=== PATIENT | male | born 1990 | race Caucasian/White ===

== ENCOUNTER 2020-11-08 03:34 | Emergency (ER) | payer OTHER ==
--- NOTE | 2020-11-08 04:28 | XR ---
EXAMINATION TYPE: XR KUB DATE OF EXAM: 11/08/2020 COMPARISON: NONE HISTORY: Abdominal pain TECHNIQUE: 2 views FINDINGS: Bowel gas pattern is normal. There is no sign of intestinal obstruction or pneumoperitoneum . Fecal pattern is normal. There is no evidence of a mass. There are no pathologic calcifications ove r the kidneys. IMPRESSION: Nonacute abdomen.
[2020-11-08] MEDS ORDERED: MAG HYDROX/AL HYDROX/SIMETH 30 ML, HYOSCYAMINE ELIXIR 10 ML, LIDOCAINE VISCOUS 2% 10 ML PO STA ×3 (04:37)
[2020-11-08 05:15] LABS: Appearance,Urine Clear (Clear); Bilirubin,Urine Negative (Negative); Blood,Urine Negative (Negative); Color,Urine Yellow; Glucose,Urine (UA) Negative (Negative); Ketones,Urine Negative (Negative); Leukocyte Esterase,Urine Negative (Negative); Nitrite,Urine Negative (Negative); PH, Urine 5.5 (5.0-8.0); Protein,Urine Trace (Negative); Specific Gravity,Urine 1.026 (1.001-1.035); Urobilinogen,Urine <2.0 mg/dL (<2.0)
[2020-11-08 05:28] LABS: ALT 47 U/L (4-49); AST 45 U/L (17-59); African American GFR (CKD) >90 (>60 ml/min/1.73 sqM); Alkaline Phosphatase 73 U/L (38-126); Amylase 39 U/L (30-110); Blood Urea Nitrogen 13 mg/dL (9-20); Calcium 10.2 mg/dL (8.4-10.2); Carbon Dioxide 26 mmol/L (22-30); Chloride 101 mmol/L (98-107); Glucose 111 mg/dL (74-99); Lipase 141 U/L (23-300); Non-African American GFR(CKD) 81 (>60 ml/min/1.73 sqM); Total Bilirubin 0.5 mg/dL (0.2-1.3); Total Protein 7.7 g/dL (6.3-8.2)
[2020-11-08 05:30] LABS: Anion Gap 9 mmol/L; Potassium 4.8 mmol/L (3.5-5.1); Sodium 136 mmol/L (137-145)
[2020-11-08 06:00] LABS: Basophils # (A) 0.1 k/uL (0-0.2); Basophils % (A) 1 %; Eosinophils # (A) 0.1 k/uL (0-0.7); Eosinophils % (A) 1 %; HCT 48.4 % (39.0-53.0); HGB 16.5 gm/dL (13.0-17.5); Lymphocytes # (A) 1.5 k/uL (1.0-4.8); Lymphocytes % (A) 14 %; MCH 31.3 pg (25.0-35.0); MCHC 34.1 g/dL (31.0-37.0); MCV 91.8 fL (80.0-100.0); Mean Platelet Volume 7.7; Monocytes # (A) 0.5 k/uL (0-1.0); Monocytes % (A) 5 %; Neutrophils % (A) 80 %; Platelet Count 280 k/uL (150-450); RBC 5.27 m/uL (4.30-5.90); RDW 11.6 % (11.5-15.5); WBC 11.3 k/uL (3.8-10.6)
--- NOTE | 2020-11-08 06:17 | ED ---
Abdominal Pain HPI - General Chief Complaint: Abdominal Pain Stated Complaint: Abdominal Pain Time Seen by Provider: 11/08/20 03:50 Source: patient Mode of arrival: ambulatory Limitations: no limitations - History of Present Illness Initial Comments: This patient is a 30-year-old man who presents with upper abdominal pain that woke him from sleep 2 hours ago. Patient indicates the epigastric area. States pain was severe, aching and burning. there seemed to spontaneously resolving he was coming here is feeling much better. Some associated nausea. He did have an episode like this a few months ago and also resolved spontaneously. MD Complaint: abdominal pain Onset/Timin -: hour(s) Location: epigastric Radiation: none Migration to: no migration Severity: moderate Quality: aching Consistency: now resolved Improves With: nothing Worsens With: nothing Associated Symptoms: nausea - Related Data Previous Rx's Medication Instructions Recorded Famotidine [Pepcid] 20 mg PO BID #14 tablet 11/08/20 Allergies Allergy/AdvReac Type Severity Reaction Status Date / Time No Known Allergies Allergy Verified 11/08/20 03:49 Review of Systems ROS Statement: Those systems with pertinent positive or pertinent negative responses have been documented in the HPI. ROS Other: All systems not noted in ROS Statement are negative. Constitutional: Denies: fever, chills Respiratory: Denies: cough, dyspnea Cardiovascular: Denies: chest pain, palpitations Gastrointestinal: Reports: abdominal pain, nausea. Denies: vomiting, diarrhea, constipation, melena, hematochezia Genitourinary: Denies: urgency, dysuria, hematuria, testicular pain Musculoskeletal: Denies: back pain Skin: Denies: rash Neurological: Denies: headache, weakness, numbness Past Medical History Past Medical History: No Reported History History of Any Multi-Drug Resistant Organisms: None Reported Past Surgical History: No Surgical Hx Reported Past Psychological History: No Psychological Hx Reported Smoking Status: Never smoker Past Alcohol Use History: Daily Past Drug Use History: None Reported General Exam Limitations: no limitations General appearance: alert, in no apparent distress Head exam: Present: atraumatic, normocephalic Eye exam: Present: normal appearance. Absent: scleral icterus, conjunctival injection ENT exam: Present: normal oropharynx Neck exam: Present: normal inspection Respiratory exam: Present: normal lung sounds bilaterally. Absent: respiratory distress, wheezes, rales, rhonchi, stridor Cardiovascular Exam: Present: regular rate, normal rhythm, normal heart sounds. Absent: systolic murmur, diastolic murmur, rubs, gallop GI/Abdominal exam: Present: soft. Absent: distended, tenderness, guarding, rebound, rigid, mass, pulsatile mass, hernia Extremities exam: Present: normal inspection, normal capillary refill. Absent: pedal edema, calf tenderness Back exam: Present: normal inspection. Absent: CVA tenderness (R), CVA tenderness (L) Neurological exam: Present: alert Skin exam: Present: warm, dry, intact, normal color. Absent: rash Course Vital Signs 11/08/20 11/08/20 03:45 06:48 Temperature 97 F L 97.9 F Pulse Rate 70 77 Respiratory 18 16 Rate Blood Pressure 174/102 140/85 O2 Sat by Pulse 98 98 Oximetry Medical Decision Making - Medical Decision Making 30-year-old man with abdominal pain that has resolved. Discussed possibility of gallbladder disease amongst other etiologies. Patient will follow-up if there is recurrence. Return parameters discussed. - Lab Data Result diagrams: 11/08/20 04:59 11/08/20 04:59 Lab Results 11/08/20 11/08/20 11/08/20 Range/Units 04:59 04:59 04:59 WBC 11.3 H (3.8-10.6) k/uL RBC 5.27 (4.30-5.90) m/uL Hgb 16.5 (13.0-17.5) gm/dL Hct 48.4 (39.0-53.0) % MCV 91.8 (80.0-100.0) fL MCH 31.3 (25.0-35.0) pg MCHC 34.1 (31.0-37.0) g/dL RDW 11.6 (11.5-15.5) % Plt Count 280 (150-450) k/uL MPV 7.7 Neutrophils % 80 % Lymphocytes % 14 % Monocytes % 5 % Eosinophils % 1 % Basophils % 1 % Neutrophils # 9.0 H (1.3-7.7) k/uL Lymphocytes # 1.5 (1.0-4.8) k/uL Monocytes # 0.5 (0-1.0) k/uL Eosinophils # 0.1 (0-0.7) k/uL Basophils # 0.1 (0-0.2) k/uL Manual Slide Review Performed Sodium 136 L (137-145) mmol/L Potassium 4.8 (3.5-5.1) mmol/L Chloride 101 (98-107) mmol/L Carbon Dioxide 26 (22-30) mmol/L Anion Gap 9 mmol/L BUN 13 (9-20) mg/dL Creatinine 1.18 (0.66-1.25) mg/dL Est GFR (CKD-EPI)AfAm >90 (>60 ml/min/1.73 sqM) Est GFR (CKD-EPI)NonAf 81 (>60 ml/min/1.73 sqM) Glucose 111 H (74-99) mg/dL Calcium 10.2 (8.4-10.2) mg/dL Total Bilirubin 0.5 (0.2-1.3) mg/dL AST 45 (17-59) U/L ALT 47 (4-49) U/L Alkaline Phosphatase 73 (38-126) U/L Total Protein 7.7 (6.3-8.2) g/dL Albumin 5.0 (3.5-5.0) g/dL Amylase 39 (30-110) U/L Lipase 141 (23-300) U/L Urine Color Yellow Urine Appearance Clear (Clear) Urine pH 5.5 (5.0-8.0) Ur Specific [place] 1.026 (1.001-1.035) Urine Protein Trace H (Negative) Urine Glucose (UA) Negative (Negative) Urine Ketones Negative (Negative) Urine Blood Negative (Negative) Urine Nitrite Negative (Negative) Urine Bilirubin Negative (Negative) Urine Urobilinogen <2.0 (<2.0) mg/dL Ur Leukocyte Esterase Negative (Negative) Disposition Clinical Impression: Abdominal pain Disposition: HOME SELF-CARE Condition: Good Instructions (If sedation given, give patient instructions): Abdominal Pain (ED) Prescriptions: Famotidine [Pepcid] 20 mg PO BID #14 tablet Is patient prescribed a controlled substance at d/c from ED?: No Referrals: None,Stated [Primary Care Provider] - 1-2 days
[2020-11-08 06:49] VITALS: BP 140/85; PULSE 77; RESP 16; TEMP 97.9
== END 2020-11-08 07:06 | disposition home or self-care (01) ==
LOC: EC 03:34
DX: R10.13 Epigastric pain (principal)
CPT/HCPCS: 36415; 74018; 80053; 81003; 82150; 83690; 85025; 99284

== ENCOUNTER 2021-01-27 22:03 | Inpatient (IN) | payer OTHER ==
[2021-01-27] MEDS ORDERED: HYDROmorphone 0.5 MG/0.5 ML SYRINGE IVP STA ×2 (22:25→23:31)
[2021-01-27] MEDS ORDERED: SODIUM CHLORIDE 0.9% 1,000 ML IV STA (22:25)
[2021-01-27] MEDS ORDERED: FAMOTIDINE 20 MG/2 ML VIAL IV STA (22:26)
--- NOTE | 2021-01-27 22:32 | ED ---
General Adult HPI - General Chief complaint: Abdominal Pain Stated complaint: Upper stomach pain Time Seen by Provider: 01/27/21 22:18 Source: patient, RN notes reviewed Mode of arrival: ambulatory Limitations: no limitations - History of Present Illness Initial comments: 30-year-old male without significant past medical history presents to the emergency room for a chief complaint of abdominal pain. Patient states for the past week he has had upper abdominal pain but it has worsened significantly over the past few hours. States that he has had similar pain before and had an ultrasound of his gallbladder done which was negative a couple months ago. Patient states that he is supposed to get an endoscopy eventually. He has not had a CAT scan.Patient has no other complaints at this time including shortness of breath, chest pain, nausea or vomiting, headache, or visual changes. - Related Data Home Medications Medication Instructions Recorded Confirmed Omeprazole 40 mg PO BID 01/27/21 01/27/21 Allergies Allergy/AdvReac Type Severity Reaction Status Date / Time No Known Allergies Allergy Verified 01/27/21 23:32 Review of Systems ROS Statement: Those systems with pertinent positive or pertinent negative responses have been documented in the HPI. ROS Other: All systems not noted in ROS Statement are negative. Past Medical History Past Medical History: No Reported History History of Any Multi-Drug Resistant Organisms: None Reported Past Surgical History: No Surgical Hx Reported Past Psychological History: No Psychological Hx Reported Smoking Status: Never smoker Past Alcohol Use History: Daily Past Drug Use History: Marijuana General Exam Limitations: no limitations General appearance: alert, in distress (Mildly distressed secondary to pain) Head exam: Present: atraumatic Eye exam: Present: normal appearance, PERRL, EOMI. Absent: scleral icterus, conjunctival injection ENT exam: Present: normal exam, mucous membranes moist Neck exam: Present: normal inspection, full ROM. Absent: tenderness Respiratory exam: Present: normal lung sounds bilaterally. Absent: respiratory distress, wheezes Cardiovascular Exam: Present: regular rate, normal rhythm, normal heart sounds GI/Abdominal exam: Present: soft, normal bowel sounds. Absent: distended, tenderness Course Vital Signs 01/27/21 01/28/21 22:14 00:55 Temperature 98.8 F Pulse Rate 62 66 Respiratory 20 18 Rate Blood Pressure 137/113 149/88 O2 Sat by Pulse 99 98 Oximetry Medical Decision Making - Medical Decision Making Vitals are stable. Patient does have significant epigastric and right upper quadrant abdominal pain. CBC does show a white count of 12. CMP does show mild transaminitis. Urinalysis negative for infection. COVID-[address] abdomen and pelvis with contrast shows multiple gallstones with some mild pericholecystic fluid and gallbladder wall thickening at the gallbladder fundus suspicious for cholecystitis. Discussed with Dr. Jara who does accept the admission, requests Zosyn be given. - Lab Data Result diagrams: 01/27/21 22:44 01/27/21 22:44 Lab Results 01/27/21 01/27/21 01/27/21 Range/Units 22:44 22:44 22:44 WBC 12.0 H (3.8-10.6) k/uL RBC 5.16 (4.30-5.90) m/uL Hgb 16.5 (13.0-17.5) gm/dL Hct 48.2 (39.0-53.0) % MCV 93.5 (80.0-100.0) fL MCH 31.9 (25.0-35.0) pg MCHC 34.1 (31.0-37.0) g/dL RDW 12.5 (11.5-15.5) % Plt Count 336 (150-450) k/uL MPV 6.9 Neutrophils % 70 % Lymphocytes % 22 % Monocytes % 5 % Eosinophils % 1 % Basophils % 0 % Neutrophils # 8.4 H (1.3-7.7) k/uL Lymphocytes # 2.7 (1.0-4.8) k/uL Monocytes # 0.6 (0-1.0) k/uL Eosinophils # 0.2 (0-0.7) k/uL Basophils # 0.1 (0-0.2) k/uL Sodium 139 (137-145) mmol/L Potassium 4.4 (3.5-5.1) mmol/L Chloride 100 (98-107) mmol/L Carbon Dioxide 28 (22-30) mmol/L Anion Gap 11 mmol/L BUN 17 (9-20) mg/dL Creatinine 1.15 (0.66-1.25) mg/dL Est GFR (CKD-EPI)AfAm >90 (>60 ml/min/1.73 sqM) Est GFR (CKD-EPI)NonAf 84 (>60 ml/min/1.73 sqM) Glucose 116 H (74-99) mg/dL Plasma Lactic Acid Manny (0.7-2.0) mmol/L Calcium 10.2 (8.4-10.2) mg/dL Total Bilirubin 0.5 (0.2-1.3) mg/dL AST 62 H (17-59) U/L ALT 86 H (4-49) U/L Alkaline Phosphatase 72 (38-126) U/L Total Protein 8.0 (6.3-8.2) g/dL Albumin 4.9 (3.5-5.0) g/dL Amylase 56 (30-110) U/L Lipase 187 (23-300) U/L Urine Color Yellow Urine Appearance Clear (Clear) Urine pH 6.0 (5.0-8.0) Ur Specific [place] 1.023 (1.001-1.035) Urine Protein Trace H (Negative) Urine Glucose (UA) Negative (Negative) Urine Ketones Negative (Negative) Urine Blood Negative (Negative) Urine Nitrite Negative (Negative) Urine Bilirubin Negative (Negative) Urine Urobilinogen <2.0 (<2.0) mg/dL Ur Leukocyte Esterase Negative (Negative) Coronavirus (PCR) (Not Detectd) 01/27/21 01/28/21 Range/Units 22:44 01:07 WBC (3.8-10.6) k/uL RBC (4.30-5.90) m/uL Hgb (13.0-17.5) gm/dL Hct (39.0-53.0) % MCV (80.0-100.0) fL MCH (25.0-35.0) pg MCHC (31.0-37.0) g/dL RDW (11.5-15.5) % Plt Count (150-450) k/uL MPV Neutrophils % % Lymphocytes % % Monocytes % % Eosinophils % % Basophils % % Neutrophils # (1.3-7.7) k/uL Lymphocytes # (1.0-4.8) k/uL Monocytes # (0-1.0) k/uL Eosinophils # (0-0.7) k/uL Basophils # (0-0.2) k/uL Sodium (137-145) mmol/L Potassium (3.5-5.1) mmol/L Chloride (98-107) mmol/L Carbon Dioxide (22-30) mmol/L Anion Gap mmol/L BUN (9-20) mg/dL Creatinine (0.66-1.25) mg/dL Est GFR (CKD-EPI)AfAm (>60 ml/min/1.73 sqM) Est GFR (CKD-EPI)NonAf (>60 ml/min/1.73 sqM) Glucose (74-99) mg/dL Plasma Lactic Acid Manny 0.7 (0.7-2.0) mmol/L Calcium (8.4-10.2) mg/dL Total Bilirubin (0.2-1.3) mg/dL AST (17-59) U/L ALT (4-49) U/L Alkaline Phosphatase (38-126) U/L Total Protein (6.3-8.2) g/dL Albumin (3.5-5.0) g/dL Amylase (30-110) U/L Lipase (23-300) U/L Urine Color Urine Appearance (Clear) Urine pH (5.0-8.0) Ur Specific [place] (1.001-1.035) Urine Protein (Negative) Urine Glucose (UA) (Negative) Urine Ketones (Negative) Urine Blood (Negative) Urine Nitrite (Negative) Urine Bilirubin (Negative) Urine Urobilinogen (<2.0) mg/dL Ur Leukocyte Esterase (Negative) Coronavirus (PCR) Not Detected (Not Detectd) Disposition Clinical Impression: Cholecystitis, Transaminitis, Leukocytosis, Abdominal pain Disposition: ADMITTED IP TO THIS HOSP Condition: Stable Is patient prescribed a controlled substance at d/c from ED?: No Referrals: Joseph Morales MD [Primary Care Provider] - 1-2 days Time of Disposition: 01:50
[2021-01-27 22:55] LABS: Basophils # (A) 0.1 k/uL (0-0.2); Basophils % (A) 0 %; Eosinophils # (A) 0.2 k/uL (0-0.7); Eosinophils % (A) 1 %; HCT 48.2 % (39.0-53.0); HGB 16.5 gm/dL (13.0-17.5); Lymphocytes # (A) 2.7 k/uL (1.0-4.8); Lymphocytes % (A) 22 %; MCH 31.9 pg (25.0-35.0); MCHC 34.1 g/dL (31.0-37.0); MCV 93.5 fL (80.0-100.0); Mean Platelet Volume 6.9; Monocytes # (A) 0.6 k/uL (0-1.0); Monocytes % (A) 5 %; Neutrophils # (A) 8.4 k/uL (1.3-7.7); Neutrophils % (A) 70 %; Platelet Count 336 k/uL (150-450); RBC 5.16 m/uL (4.30-5.90); RDW 12.5 % (11.5-15.5)
[2021-01-27 22:58] LABS: Appearance,Urine Clear (Clear); Bilirubin,Urine Negative (Negative); Blood,Urine Negative (Negative); Color,Urine Yellow; Glucose,Urine (UA) Negative (Negative); Ketones,Urine Negative (Negative); Leukocyte Esterase,Urine Negative (Negative); Nitrite,Urine Negative (Negative); Protein,Urine Trace (Negative); Specific Gravity,Urine 1.023 (1.001-1.035); Urobilinogen,Urine <2.0 mg/dL (<2.0)
[2021-01-27 23:07] LABS: ALT 86 U/L (4-49); AST 62 U/L (17-59); African American GFR (CKD) >90 (>60 ml/min/1.73 sqM); Albumin 4.9 g/dL (3.5-5.0); Alkaline Phosphatase 72 U/L (38-126); Amylase 56 U/L (30-110); Anion Gap 11 mmol/L; Blood Urea Nitrogen 17 mg/dL (9-20); Calcium 10.2 mg/dL (8.4-10.2); Carbon Dioxide 28 mmol/L (22-30); Chloride 100 mmol/L (98-107); Glucose 116 mg/dL (74-99); Lipase 187 U/L (23-300); Non-African American GFR(CKD) 84 (>60 ml/min/1.73 sqM); Potassium 4.4 mmol/L (3.5-5.1); Sodium 139 mmol/L (137-145); Total Bilirubin 0.5 mg/dL (0.2-1.3)
--- NOTE | 2021-01-27 23:40 | CT ---
EXAMINATION TYPE: CT abdomen pelvis w con DATE OF EXAM: 01/27/2021 COMPARISON: None HISTORY: upper abdominal pain and nausea CT DLP: 1328.3 mGycm Automated exposure control for dose reduction was used. CONTRAST: Performed with IV Contrast, patient injected with 100ml mL of Isovue 300. Images obtained from the diaphragm to the floor the pelvis with IV contrast. Lung bases are clear. There is no pleural effusion. Heart size is normal. There is no pericardial eff usion. There is 1 cm cyst in the left lobe of the liver. There are multiple cholesterol gallstones. T here is some minimal gallbladder wall thickening or pericholecystic fluid. Gallbladder measures 3.5 c m in diameter. Spleen is intact. Stomach is intact. There is no evidence of pancreatic mass. The bile ducts are not dilated. There is no adrenal mass. Kidneys show satisfactory contrast opacification. There is no hydronephrosi s. Delayed images show normal renal excretion. Bladder distends smoothly. There is no inguinal hernia . There is no free fluid in the pelvis. Appendix appears normal. There is no mesenteric edema. There is no ascites or free air. There is no evidence of a bowel obstruction. The lumbar vertebra show normal alignment. Posterior elements are intact. There is no compression fra cture. Bony pelvis is intact. The hip joints are intact. IMPRESSION: Multiple gallstones with some mild pericholecystic fluid or gallbladder wall thickening at the gallbl adder fundus suspicious for cholecystitis. No dilated ducts. Normal appendix.
[2021-01-28] MEDS ORDERED: PIPERACILLIN-TAZOBACTAM 3.375 GM in SODIUM CHLORIDE 0.9% 100 ML IVPB STA (00:44)
[2021-01-28] MEDS ORDERED: HYDROmorphone 0.5 MG/0.5 ML SYRINGE IVP STA (00:44)
[2021-01-28] MEDS ORDERED: NALOXONE 0.4 MG/ML 1 ML VIAL IV PRN (01:50)
[2021-01-28] MEDS ORDERED: ONDANSETRON 4 MG/2 ML VIAL IVP PRN (01:50)
[2021-01-28] MEDS: SODIUM CHLORIDE 0.9% 1,000 ML IV SCH ×3 (03:31→16:06)
[2021-01-28] MEDS: HYDROmorphone 1 MG/ML 1 ML SYRINGE IVP PRN ×4 (03:55→20:00)
[2021-01-28] MEDS ORDERED: SODIUM CHLORIDE 0.9% 2,000 ML IV ONE (06:04)
[2021-01-28] MEDS: KETOROLAC 30 MG/ML 1 ML VIAL IVP SCH ×3 (06:18→16:16)
[2021-01-28] MEDS: ENOXAPARIN 30 MG/0.3 ML SYRINGE SQ SCH (06:26)
[2021-01-28 07:16] LABS: Basophils % (A) 0 %; Eosinophils % (A) 0 %; HCT 46.6 % (39.0-53.0); HGB 16.4 gm/dL (13.0-17.5); Lymphocytes # (A) 1.8 k/uL (1.0-4.8); Lymphocytes % (A) 12 %; MCH 32.6 pg (25.0-35.0); MCHC 35.1 g/dL (31.0-37.0); Mean Platelet Volume 7.1; Monocytes # (A) 0.9 k/uL (0-1.0); Monocytes % (A) 6 %; Neutrophils # (A) 12.4 k/uL (1.3-7.7); Neutrophils % (A) 81 %; Platelet Count 329 k/uL (150-450); RBC 5.01 m/uL (4.30-5.90); RDW 12.6 % (11.5-15.5); WBC 15.2 k/uL (3.8-10.6)
[2021-01-28 07:34] LABS: ALT 77 U/L (4-49); AST 55 U/L (17-59); African American GFR (CKD) >90 (>60 ml/min/1.73 sqM); Albumin 4.5 g/dL (3.5-5.0); Albumin/Globulin Ratio 1.6; Alkaline Phosphatase 74 U/L (38-126); Anion Gap 8 mmol/L; Blood Urea Nitrogen 13 mg/dL (9-20); Calcium 9.7 mg/dL (8.4-10.2); Carbon Dioxide 28 mmol/L (22-30); Chloride 102 mmol/L (98-107); Globulin 2.8 g/dL; Glucose 118 mg/dL (74-99); Non-African American GFR(CKD) 87 (>60 ml/min/1.73 sqM); Potassium 4.7 mmol/L (3.5-5.1); Sodium 138 mmol/L (137-145); Total Bilirubin 0.8 mg/dL (0.2-1.3); Total Protein 7.3 g/dL (6.3-8.2)
[2021-01-28] MEDS: PANTOPRAZOLE 40 MG/10 ML VIAL IVP SCH (08:36)
[2021-01-28] MEDS: PIPERACILLIN-TAZOBACTAM 3.375 GM in SODIUM CHLORIDE 0.9% 100 ML IVPB SCH ×2 (08:44→16:06)
--- NOTE | 2021-01-28 14:45 | P.GSHP ---
History of Present Illness H&P Date: 01/28/21 CHIEF COMPLAINT: Abdominal pain HISTORY OF PRESENT ILLNESS: This is a 30-year-old male who presented to the hospital with complaints of right upper quadrant abdominal pain. He has been having pain intermittently since April. However, he reports that he is had more pain over the last week and severe pain that started last night. Pain usually occurs after eating and mostly in the evenings. Patient reports that around 7:00 last night he started to have right upper quadrant pain that became very severe and did not improve with antacids. He therefore came into the hospital for further evaluation. Patient had computed tomography scan abdomen and pelvis showing multiple gallstones with some mild pericholecystic fluid or gallbladder wall thickening at the gallbladder fundus suspicious for cholecystitis. No dilated ducts. Normal appendix. Patient does admit to feeling hot and cold. He has had a few episodes of vomiting and nausea. Denies fever. He does have leukocytosis and mildly elevated LFTs. PAST MEDICAL HISTORY: None PAST SURGICAL HISTORY: None MEDICATIONS: See list. ALLERGIES: See list. SOCIAL HISTORY: No illicit drug use. REVIEW OF SYSTEMS: CONSTITUTIONAL: Denies fever or chills. HEENT: Denies blurred vision, vision changes, or eye pain. Denies hemoptysis ENDOCRINE: Denies heat or cold intolerance. CARDIOVASCULAR: Denies chest pain or pressure. RESPIRATORY: No shortness of breath. GASTROINTESTINAL: Please refer to HPI NEURO: Denies history of seizures. PSYCH: No depression or suicidal ideation HEMATOLOGIC: Denies bleeding disorders. LYMPHATIC: The patient denies any lumps and bumps around the neck. GENITOURINARY: Denies any blood in urine or increased urinary frequency. MUSCULOSKELETAL: Denies myalgias. Denies joint swelling. Denies decreased range of motion beyond patients baseline. SKIN: Denies pruitis. Denies rash. PHYSICAL EXAM: VITAL SIGNS: Reviewed GENERAL: Well-developed in no acute distress. HEENT: No sclera icterus. Extraocular movements grossly intact. Moist buccal mucosa. Head is atraumatic, normocephalic. Hears conversational speech. No nasal drainage. NECK: Supple without lymphadenopathy. CHEST: Non-labored respirations and equal bilateral excursions. CARDIOVASCULAR: Palpable 2+ radial pulses. ABDOMEN: Soft. Nondistended. Right upper quadrant tenderness with palpation MUSCULOSKELETAL: No clubbing or cyanosis. NEUROLOGIC: No focal or lateralizing signs. Cranial nerves II through XII grossly intact. PSYCH: Appropriate affect. Alert and oriented to person, place and time. SKIN: Well perfused. Good skin turgor. LABORATORY DATA: WBC 12-15.2 Hgb 16.4 platelets 329 Sodium 138 potassium 4.7 BUN 13 creatinine 1.12 Lactic acid 0.7 AST 62 down to 55 ALT 86 down to 77 total bilirubin 0.8 alk phos 74 Lipase 187 Covid not detected IMAGING: computed tomography scan abdomen and pelvis showing multiple gallstones with some mild pericholecystic fluid or gallbladder wall thickening at the gallbladd er fundus suspicious for cholecystitis. No dilated ducts. Normal appendix. ASSESSMENT: 1. Acute cholecystitis with cholelithiasis 2. Mildly elevated LFTs 3. Leukocytosis PLAN: -Patient scheduled for robotic cholecystectomy tomorrow, 01/29/[address] Vega -Keep patient nothing by mouth after midnight -Continue IV antibiotics -Continue IV fluids -Continue pain medication as needed -GI prophylaxis Protonix and DVT prophylaxis Lovenox Physician Music Composer note has been reviewed by physician. Signing provider agrees with the documented findings, assessment, and plan of care. Past Medical History Past Medical History: No Reported History History of Any Multi-Drug Resistant Organisms: None Reported Past Surgical History: No Surgical Hx Reported Past Anesthesia/Blood Transfusion Reactions: No Reported Reaction Past Psychological History: No Psychological Hx Reported Smoking Status: Never smoker Past Alcohol Use History: Daily Past Drug Use History: Marijuana Medications and Allergies Home Medications Medication Instructions Recorded Confirmed Type Omeprazole 40 mg PO BID 01/27/21 01/27/21 History Allergies Allergy/AdvReac Type Severity Reaction Status Date / Time No Known Allergies Allergy Verified 01/27/21 23:32 Surgical - Exam Vital Signs Temp Pulse Resp BP Pulse Ox 98.8 F 62 20 137/113 99 01/27/21 22:14 01/27/21 22:14 01/27/21 22:14 01/27/21 22:14 01/27/21 22:14 Results - Labs 01/28/21 06:38 01/28/21 06:38 Abnormal Lab Results - Last 24 Hours (Table) 01/27/21 01/27/21 01/27/21 Range/Units 22:44 22:44 22:44 WBC 12.0 H (3.8-10.6) k/uL Neutrophils # 8.4 H (1.3-7.7) k/uL Glucose 116 H (74-99) mg/dL AST 62 H (17-59) U/L ALT 86 H (4-49) U/L Urine Protein Trace H (Negative) 01/28/21 01/28/21 Range/Units 06:38 06:38 WBC 15.2 H (3.8-10.6) k/uL Neutrophils # 12.4 H (1.3-7.7) k/uL Glucose 118 H (74-99) mg/dL AST (17-59) U/L ALT 77 H (4-49) U/L Urine Protein (Negative) Diabetes panel 01/27/21 01/28/21 Range/Units 22:44 06:38 Sodium 139 138 (137-145) mmol/L Potassium 4.4 4.7 (3.5-5.1) mmol/L Chloride 100 102 (98-107) mmol/L Carbon Dioxide 28 28 (22-30) mmol/L BUN 17 13 (9-20) mg/dL Creatinine 1.15 1.12 (0.66-1.25) mg/dL Glucose 116 H 118 H (74-99) mg/dL Calcium 10.2 9.7 (8.4-10.2) mg/dL AST 62 H 55 (17-59) U/L ALT 86 H 77 H (4-49) U/L Alkaline Phosphatase 72 74 (38-126) U/L Total Protein 8.0 7.3 (6.3-8.2) g/dL Albumin 4.9 4.5 (3.5-5.0) g/dL Calcium panel 01/27/21 01/28/21 Range/Units 22:44 06:38 Calcium 10.2 9.7 (8.4-10.2) mg/dL Albumin 4.9 4.5 (3.5-5.0) g/dL Pituitary panel 01/27/21 01/28/21 Range/Units 22:44 06:38 Sodium 139 138 (137-145) mmol/L Potassium 4.4 4.7 (3.5-5.1) mmol/L Chloride 100 102 (98-107) mmol/L Carbon Dioxide 28 28 (22-30) mmol/L BUN 17 13 (9-20) mg/dL Creatinine 1.15 1.12 (0.66-1.25) mg/dL Glucose 116 H 118 H (74-99) mg/dL Calcium 10.2 9.7 (8.4-10.2) mg/dL Adrenal panel 01/27/21 01/28/21 Range/Units 22:44 06:38 Sodium 139 138 (137-145) mmol/L Potassium 4.4 4.7 (3.5-5.1) mmol/L Chloride 100 102 (98-107) mmol/L Carbon Dioxide 28 28 (22-30) mmol/L BUN 17 13 (9-20) mg/dL Creatinine 1.15 1.12 (0.66-1.25) mg/dL Glucose 116 H 118 H (74-99) mg/dL Calcium 10.2 9.7 (8.4-10.2) mg/dL Total Bilirubin 0.5 0.8 (0.2-1.3) mg/dL AST 62 H 55 (17-59) U/L ALT 86 H 77 H (4-49) U/L Alkaline Phosphatase 72 74 (38-126) U/L Total Protein 8.0 7.3 (6.3-8.2) g/dL Albumin 4.9 4.5 (3.5-5.0) g/dL
[2021-01-28] MEDS: metroNIDAZOLE-NS PMX 500 MG in SALINE 1 100ML.BAG IVPB SCH (16:42)
[2021-01-28] MEDS: ACETAMINOPHEN TAB 500 MG TAB PO SCH (19:59)
[2021-01-29] MEDS: ACETAMINOPHEN TAB 500 MG TAB PO SCH ×5 (01:13→23:32)
[2021-01-29] MEDS: metroNIDAZOLE-NS PMX 500 MG in SALINE 1 100ML.BAG IVPB SCH ×4 (01:21→23:33)
[2021-01-29] MEDS: KETOROLAC 30 MG/ML 1 ML VIAL IVP SCH ×5 (01:22→23:33)
[2021-01-29] MEDS: HYDROmorphone 1 MG/ML 1 ML SYRINGE IVP PRN (01:23)
[2021-01-29] MEDS: PIPERACILLIN-TAZOBACTAM 3.375 GM in SODIUM CHLORIDE 0.9% 100 ML IVPB SCH ×3 (01:32→17:53)
[2021-01-29] MEDS: SODIUM CHLORIDE 0.9% 1,000 ML IV SCH ×3 (01:33→17:56)
[2021-01-29] MEDS: ENOXAPARIN 30 MG/0.3 ML SYRINGE SQ SCH (05:53)
[2021-01-29] MEDS ORDERED: GABAPENTIN 300 MG CAP PO PRN (06:14)
[2021-01-29] MEDS ORDERED: INDOCYANINE GREEN 25 MG VIAL IV PRN (06:14)
[2021-01-29] MEDS: PANTOPRAZOLE 40 MG/10 ML VIAL IVP SCH (08:46)
[2021-01-29] MEDS ORDERED: IV FLUID CONTINUATION 1,000 ML IV ONE (09:23)
[2021-01-29 09:31] LABS: Basophils # (A) 0.04 X 10*3/uL (0.00-0.10); Basophils % (A) 0.3 %; Eosinophils # (A) 0.24 X 10*3/uL (0.04-0.35); Eosinophils % (A) 1.9 %; HCT 43.1 % (39.6-50.0); HGB 14.6 g/dL (13.0-17.0); Lymphocytes # (A) 2.44 X 10*3/uL (0.90-5.00); Lymphocytes % (A) 18.9 %; MCH 30.8 pg (27.0-32.0); MCHC 33.9 g/dL (32.0-37.0); MCV 90.9 fL (80.0-97.0); Mean Platelet Volume 9.8 fL (9.5-12.2); Monocytes # (A) 1.38 X 10*3/uL (0.20-1.00); Monocytes % (A) 10.7 %; Neutrophils # (A) 8.74 X 10*3/uL (1.80-7.70); Neutrophils % (A) 67.9 %; Platelet Count 288 X 10*3/uL (140-440); RBC 4.74 X 10*6/uL (4.40-5.60); WBC 12.88 X 10*3/uL (4.50-10.00)
[2021-01-29] MEDS ORDERED: ONDANSETRON 4 MG/2 ML VIAL IVP ONE (09:41)
[2021-01-29] MEDS ORDERED: DEXAMETHASONE SOD PHOSPHATE 4 MG/ML 1 ML VIAL IVP ONE (09:41)
[2021-01-29] MEDS ORDERED: GLYCOPYRROLATE 0.2 MG/ML 2 ML VIAL ONE (09:52)
[2021-01-29] MEDS ORDERED: KETAMINE 10 MG/ML 20 ML VIAL ONE (09:52)
[2021-01-29] MEDS ORDERED: ROCURONIUM 10 MG/ML (5 ML VIAL) IV ONE (09:52)
[2021-01-29] MEDS ORDERED: LIDOCAINE 1% INJ 10MG/ML (20 ML MDV) ONE ×2 (09:52)
[2021-01-29] MEDS ORDERED: fentaNYL (PF) 50 MCG/ML 2 ML AMP ONE (09:52)
[2021-01-29] MEDS ORDERED: NEOSTIGMINE 1 MG/ML 10 ML VIAL ONE (09:52)
[2021-01-29] MEDS ORDERED: MIDAZOLAM 2 MG/2 ML VIAL ONE (09:52)
[2021-01-29] MEDS ORDERED: LABETALOL 5 MG/ML VIAL MDV ONE (09:52)
[2021-01-29] MEDS ORDERED: HYDROmorphone (PF) 1 MG/ML ONE (09:52)
[2021-01-29] MEDS ORDERED: PROPOFOL 10 MG/ML 20 ML VIAL IV ONE (09:52)
[2021-01-29] MEDS ORDERED: SUCCINYLCHOLINE CHLORIDE 100 MG/5 ML SYR IV ONE (09:52)
[2021-01-29] MEDS ORDERED: INDOCYANINE GREEN 25 MG VIAL IV ONE (09:52)
--- NOTE | 2021-01-29 10:03 | P.HPADDEND ---
H&P Addendum H&P Addendum Date: 01/29/21 Patient reports pain has improved. We'll proceed with robotic cholecystectomy. Benefits and risks thoroughly reviewed. Risk of DONNA drain placement also described.
[2021-01-29 10:19] LABS: African American GFR (CKD) 92.2 (60.0-200.0); Albumin 4.4 g/dL (3.8-4.9); Albumin/Globulin Ratio 2.1 (1.60-3.17); Anion Gap 14.1 mmol/L (10.00-18.00); BUN/Creat Ratio 7.58 Ratio (12.00-20.00); Blood Urea Nitrogen 9.1 mg/dL (9.0-27.0); Calcium 9.5 mg/dL (8.7-10.3); Carbon Dioxide 22.9 mmol/L (20.0-27.5); Globulin 2.1 g/dL (1.6-3.3); Non-African American GFR(CKD) 79.5 (60.0-200.0); Potassium 4.2 mmol/L (3.5-5.5); Total Bilirubin 1.4 mg/dL (0.30-1.20); Total Protein 6.5 g/dL (6.2-8.2)
[2021-01-29] MEDS ORDERED: BUPIVACAIN-EPI 0.25%-1:200,000 30 ML VIAL SQ ONE (10:23)
[2021-01-29] MEDS ORDERED: LACTATED RINGERS 1,000 ML IV ONE (11:51)
[2021-01-29] MEDS ORDERED: HYDROmorphone 0.5 MG/0.5 ML SYRINGE IVP ONE ×2 (13:01→13:21)
[2021-01-29] MEDS ORDERED: METOCLOPRAMIDE 5 MG/ML 2 ML VIAL IVP PRN (13:47)
--- NOTE | 2021-01-29 14:32 | P.OP ---
Date of Procedure: 01/29/21 Description of Procedure: SURGEON: ELAINE DAHL MD PREOPERATIVE DIAGNOSES: 1. Acute cholecystitis due to cystic duct obstruction from gallstones 2. Uncontrolled hypertensive heart disease 3. Obesity due to excess calories, BMI 33.0 4. Gastroesophageal reflux disease 5. Hyperbilirubinemia due to common bile duct obstruction 6. Common bile duct obstruction POSTOPERATIVE DIAGNOSES: 1. Acute gangrenous cholecystitis with cystic duct obstruction due to galls tones 2. Uncontrolled hypertensive heart disease 3. Obesity due to excess calories, BMI 33.0 4. Gastroesophageal reflux disease 5. Hyperbilirubinemia due to common bile duct obstruction 6. Common bile duct obstruction 7. Sepsis due to acute gangrenous cholecystitis OPERATION: 1. Robotic-assisted da Wagner Xi laparoscopic cholecystectomy, multiport with FIREFLY ESTIMATED BLOOD LOSS: 50 mL. SPECIMENS REMOVED: Gallbladder. COMPLICATIONS: None. OPERATIVE FINDINGS: 1. Acute gangrenous cholecystitis with hydrops due to multiple gallstones with impaction and cystic duct 2. Indocyanine green drain confirms acute cholecystitis with lack of contrast in gallbladder 3. Common bile duct within normal limits, without dilation 4. Indocyanine green demonstrates no bile leak at end of procedure. INDICATIONS: The patient is a 30 year-old female who presents with epigastric right upper quadrant pain, symptomatic gallstones, WBC over 15,000, tachycardia, and clinical features of acute cholecystitis with presentation of sepsis. Antibiotic management including pain management was prescribed to manage her cholecystitis. Surgical intervention with cholecystectomy was described. Robotic assisted laparoscopic approach was described. Benefits and risks of the procedure including but not limited to bleeding, infection, injury to the biliary tree was reviewed. Informed consent was obtained. DESCRIPTION OF PROCEDURE: Patient was brought to the operating room, placed in supine position. After general induction, the abdomen had been prepped and draped in standard sterile fashion. The robotic da Wagner XI system was primed. After a timeout protocol was performed, the patient had been prepped and draped in standard sterile fashion. The patient was injected with indocyanine green. A 5 mm 0 degrees laparoscopic trocar entry was performed along the left upper quadrant. The abdomen insufflated to 15 mmHg pressure which was tolerated well. Diagnostic laparoscopy demonstrated no injury to bowel viscera or mesentery. The liver surface was unremarkable. A moderately distended gallbladder was identified adding complexity to the case. Next, two 8 mm robotic ports were placed along the right upper abdomen. The camera 8-mm port was maintained along the epigastrium. Another 8 mm port was placed along the left upper abdominal wall after exchanging the 5 mm port. Please note that the ports were placed at least 10 to 15 cm away from the target anatomy of the gallbladder. The robot was docked along the left lateral abdomen. The patient was repositioned in reverse Trendelenburg position with the right side up. Using a grasper for arm 3, a grasper for arm 4, including hook cautery for arm 1, the robotic system was docked and primed as described. Instruments were interchanged by the observation assistant including hook cautery, Bovie cautery and clip appliers. I had sat at the console. The gallbladder was reflected towards the dome of the liver. The gallbladder was moderately distended adding complexity to the case. Moderate edema was found along the cystic triangle including infundibulum. Initial dissection was performed on the gallbladder infundibulum using indocyanine green to illuminate the cystic duct and common bile duct. Due to moderate distention of the infundibulum, dome down technique was performed removing the gallbladder from the hepatic fossa starting from the fundus towards the infundibulum. Using a sponge, the liver was reflected towards the diaphragm and starting at the gallbladder fundus, hook cautery was used to find the avascular plane between the liver and the gallbladder. As the gallbladder was dissected from the hepatic fossa, hemostasis was checked using vessel sealer along the posterior gallbladder. Next, indocyanine green was used to confirm the common bile duct as well as cystic duct. The entire gallbladder was without contrast consistent with acute cholecystitis. The infundibulum was retracted laterally to expose the cystic duct away from the common bile duct. however due to dilated infundibulum, the cystic duct was distorted posteriorly adding complexity to the case. The cystic duct was dissected free from its surrounding tissue. FIREFLY was used to identify the cystic structures. A critical view of safety was obtained. Large PLASTIC clip was used throughout the entire case. Using a clip inseam leveler, a clip was placed at the junction of the infundibulum and cystic duct. The cystic duct was divided using vessel sealer Distally . Next, the cystic artery was divided using vessel sealer. Electro-Bovie cautery and vessel sealer was used to remove the gallbladder without decompression. Hemostasis was checked and found to be adequate. The robot was undocked. I re-scrubbed into the case. A 10 mm Endo Catch bag was used to remove the gallbladder in total via the left upper quadrant incision after widening the incision. The specimen was removed from the abdominal cavity. Jesus Lorenzo and 0 Vicryl was used to close the fascial defect of the left upper quadrant. All pneumoperitoneum instruments were evacuated from the abdominal cavity. The incisions were cleansed using dilute hydrogen peroxide. The incisions were reapproximated using 4-0 Monocryl in an interrupted subcuticular fashion. Please note along the trocar sites, local anesthetic was placed as a field block prior to insertion of all instruments. Liquid glue was applied to the skin. At the end of the procedure needle, sponge, and instrument count had been verified correct by the ip/mosaic technician. The patient was transferred to postanesthesia care unit in stable condition. Intraoperative films were shared with the patient's family who were pleased with the level of care. I returned to the operating room per request of the team, patient had bleeding from the left upper quadrant incision. Pressure dressing using 4 x 4s and foam tape was placed after cleaning the patient. Bleeding was controlled and patient was stable. COMPLEXITY: Recommend in-patient admission due to acute gangrenous cholecystitis including risk for acute blood loss anemia.
[2021-01-29] MEDS: ACETAMINOPHEN IV (For NPO) 1,000 MG in EMPTY BAG 1 BAG IVPB SCH ×2 (17:54→23:18)
[2021-01-29] MEDS: PANTOPRAZOLE 40 MG TABLET PO SCH (20:55)
[2021-01-29] MEDS: HYDROcodone/APAP 5-325MG 1 EACH TAB PO PRN (20:55)
[2021-01-30] MEDS: SODIUM CHLORIDE 0.9% 1,000 ML IV SCH ×4 (01:06→23:36)
[2021-01-30] MEDS: PIPERACILLIN-TAZOBACTAM 3.375 GM in SODIUM CHLORIDE 0.9% 100 ML IVPB SCH ×3 (01:59→18:13)
[2021-01-30] MEDS: ACETAMINOPHEN IV (For NPO) 1,000 MG in EMPTY BAG 1 BAG IVPB SCH ×3 (04:43→18:32)
[2021-01-30] MEDS: KETOROLAC 30 MG/ML 1 ML VIAL IVP SCH ×3 (05:39→17:01)
[2021-01-30] MEDS: ACETAMINOPHEN TAB 500 MG TAB PO SCH ×3 (05:39→17:02)
[2021-01-30] MEDS: ENOXAPARIN 30 MG/0.3 ML SYRINGE SQ SCH (05:40)
[2021-01-30] MEDS: metroNIDAZOLE-NS PMX 500 MG in SALINE 1 100ML.BAG IVPB SCH ×2 (08:15→16:59)
[2021-01-30] MEDS: PANTOPRAZOLE 40 MG TABLET PO SCH ×2 (08:16→21:18)
[2021-01-30] MEDS: HYDROmorphone 1 MG/ML 1 ML SYRINGE IVP PRN ×3 (08:26→21:18)
[2021-01-30 09:23] LABS: Basophils # (A) 0.02 X 10*3/uL (0.00-0.10); Basophils % (A) 0.1 %; Eosinophils # (A) 0.03 X 10*3/uL (0.04-0.35); Eosinophils % (A) 0.2 %; HCT 37.7 % (39.6-50.0); HGB 12.7 g/dL (13.0-17.0); Lymphocytes # (A) 1.72 X 10*3/uL (0.90-5.00); Lymphocytes % (A) 12.4 %; MCH 31.1 pg (27.0-32.0); MCHC 33.7 g/dL (32.0-37.0); MCV 92.4 fL (80.0-97.0); Mean Platelet Volume 9.8 fL (9.5-12.2); Monocytes % (A) 7.9 %; Neutrophils # (A) 10.95 X 10*3/uL (1.80-7.70); Neutrophils % (A) 79.1 %; Platelet Count 266 X 10*3/uL (140-440); RBC 4.08 X 10*6/uL (4.40-5.60); RDW 12.2 % (11.5-14.5); WBC 13.86 X 10*3/uL (4.50-10.00)
[2021-01-30 11:48] LABS: African American GFR (CKD) 102.4 (60.0-200.0); Albumin/Globulin Ratio 2.11 (1.60-3.17); Anion Gap 13.1 mmol/L (10.00-18.00); BUN/Creat Ratio 10.36 Ratio (12.00-20.00); Blood Urea Nitrogen 11.4 mg/dL (9.0-27.0); Calcium 8.9 mg/dL (8.7-10.3); Carbon Dioxide 22.9 mmol/L (20.0-27.5); Globulin 1.9 g/dL (1.6-3.3); Non-African American GFR(CKD) 88.4 (60.0-200.0); Potassium 4.4 mmol/L (3.5-5.5); Total Bilirubin 0.4 mg/dL (0.30-1.20); Total Protein 5.9 g/dL (6.2-8.2)
--- NOTE | 2021-01-30 12:34 | P.PN ---
Subjective Progress Note Date: 01/30/21 CHIEF COMPLAINT: Acute gangrenous cholecystitis with sepsis HISTORY OF PRESENT ILLNESS: The patient is a 30-year-old male s/p robotic cholecystectomy for acute gangrenous cholecystitis with sepsis. He is POD 1. Pain is moderate. He has low oxygen levels. He is tolerating diet. No further bleeding along left upper quadrant incision. Blood pressure has improved. ROS: No reports of nausea and vomiting. No fevers or chills. No new chest pain. No productive sputum PHYSICAL EXAM: VITAL SIGNS: Reviewed CONSTITUTIONAL: Well developed and in no acute distress. EYES: Conjuctivae without sclera icterus. Extraocular movements grossly intact. HEAD, EARS, NOSE, THROAT: Moist buccal mucosa. Head is atraumatic, normocephalic. Hears conversational speech. No nasal drainage. RESPIRATORY: Non-labored respirations and equal bilateral excursions. Oxygen saturation less than 95% CARDIOVASCULAR: Palpable 2+ radial pulses. ABDOMEN: Pressure dressing clean dry and intact. Binder clean dry and intact and repositioned. MUSCULOSKELETAL: No gross deformity of the lower extremities noted. No clubb ing. No cyanosis. SKIN: Good skin turgor. Well perfused. NEUROLOGIC: Cranial nerves II through XII grossly intact. No focal or lateralizing signs. PSYCH: Appropriate affect. Alert and oriented to person, place and time. CLINICAL LABS: Reviewed. WBC elevated over 13,000. Total bilirubin now normal down from 1.4 to 0.4. LFTs appropriately elevated. ASSESSMENT: 1. Acute gangrenous cholecystitis with sepsis. 2. Common bile duct obstruction, resolve 3. Hypoxia. PLAN: 1. Pulmonary toilet 2. Will add breathing treatments 3. Continue IV antibiotics 4. Low fat diet 5. Disposition 48 hrs. Objective - Vital Signs Vital signs: Vital Signs Temp 98 F 01/30/21 07:27 Pulse 106 H 01/30/21 08:00 Resp 17 01/30/21 07:27 BP 121/68 01/30/21 07:27 Pulse Ox 91 L 01/30/21 07:27 Intake & Output 01/29/21 01/30/21 01/30/21 18:59 06:59 18:59 Intake Total 1640 180 Output Total 50 Balance 1590 180 Intake: IV 1400 Oral 240 180 Output: Estimated Blood Loss 50 Other: # Voids 4 2 - Labs CBC & Chem 7: 01/30/21 04:33 01/30/21 04:33 Labs: Abnormal Lab Results - Last 24 Hours (Table) 01/30/21 Range/Units 04:33 WBC 13.86 H (4.50-10.00) X 10*3/uL RBC 4.08 L (4.40-5.60) X 10*6/uL Hgb 12.7 L (13.0-17.0) g/dL Hct 37.7 L (39.6-50.0) % Neutrophils # 10.95 H (1.80-7.70) X 10*3/uL Monocytes # 1.10 H (0.20-1.00) X 10*3/uL Eosinophils # 0.03 L (0.04-0.35) X 10*3/uL Microbiology - Last 24 Hours (Table) 01/28/21 00:50 Blood Culture - Preliminary Blood No Growth after 48 hours 01/28/21 00:35 Blood Culture - Preliminary Blood No Growth after 48 hours Assessment and Plan (1) Common bile duct obstruction Current Visit: Yes Status: Acute Code(s): K83.1 - OBSTRUCTION OF BILE DUCT SNOMED Code(s): 747740490 (2) Hypoxia Current Visit: Yes Status: Acute Code(s): R09.02 - HYPOXEMIA SNOMED Code(s): 484123441 (3) Gangrene of gallbladder in cholecystitis Current Visit: Yes Status: Acute Code(s): K82.A1 - GANGRENE OF GALLBLADDER IN CHOLECYSTITIS SNOMED Code(s): 474951967 (4) Hyperbilirubinemia Current Visit: Yes Status: Acute Code(s): E80.6 - OTHER DISORDERS OF BILIRUBIN METABOLISM SNOMED Code(s): 46463672 (5) Leukocytosis Current Visit: Yes Status: Acute Code(s): D72.829 - ELEVATED WHITE BLOOD CELL COUNT, UNSPECIFIED SNOMED Code(s): 202622167 (6) Sepsis Current Visit: Yes Status: Acute Code(s): A41.9 - SEPSIS, UNSPECIFIED ORGANISM SNOMED Code(s): 29062379
[2021-01-30] MEDS: ALBUTEROL NEBULIZED 2.5 MG/3 ML INHALATION SCH ×2 (15:36→20:42)
[2021-01-31] MEDS: KETOROLAC 30 MG/ML 1 ML VIAL IVP SCH ×5 (00:47→23:28)
[2021-01-31] MEDS: ACETAMINOPHEN TAB 500 MG TAB PO SCH ×5 (00:48→23:29)
[2021-01-31] MEDS: metroNIDAZOLE-NS PMX 500 MG in SALINE 1 100ML.BAG IVPB SCH ×4 (00:48→23:28)
[2021-01-31] MEDS: PIPERACILLIN-TAZOBACTAM 3.375 GM in SODIUM CHLORIDE 0.9% 100 ML IVPB SCH ×3 (02:01→18:03)
[2021-01-31] MEDS: HYDROmorphone 1 MG/ML 1 ML SYRINGE IVP PRN ×3 (02:09→21:27)
[2021-01-31] MEDS: ENOXAPARIN 30 MG/0.3 ML SYRINGE SQ SCH (05:38)
[2021-01-31] MEDS: ALBUTEROL NEBULIZED 2.5 MG/3 ML INHALATION SCH ×4 (07:32→19:23)
[2021-01-31] MEDS: PANTOPRAZOLE 40 MG TABLET PO SCH ×2 (09:48→21:27)
[2021-01-31] MEDS: SODIUM CHLORIDE 0.9% 1,000 ML IV SCH (09:50)
[2021-01-31 10:16] LABS: Basophils % (A) 0 %; Eosinophils # (A) 0.2 k/uL (0-0.7); Eosinophils % (A) 2 %; HCT 38.2 % (39.0-53.0); Lymphocytes # (A) 1.7 k/uL (1.0-4.8); Lymphocytes % (A) 16 %; MCH 31.3 pg (25.0-35.0); MCHC 33.2 g/dL (31.0-37.0); MCV 94.1 fL (80.0-100.0); Mean Platelet Volume 7.6; Monocytes # (A) 0.6 k/uL (0-1.0); Monocytes % (A) 6 %; Neutrophils % (A) 75 %; Platelet Count 285 k/uL (150-450); RBC 4.06 m/uL (4.30-5.90); RDW 12.1 % (11.5-15.5); WBC 10.7 k/uL (3.8-10.6)
[2021-01-31 10:34] LABS: ALT 78 U/L (4-49); AST 60 U/L (17-59); African American GFR (CKD) >90 (>60 ml/min/1.73 sqM); Albumin 3.3 g/dL (3.5-5.0); Albumin/Globulin Ratio 1.3; Alkaline Phosphatase 64 U/L (38-126); Anion Gap 10 mmol/L; Blood Urea Nitrogen 13 mg/dL (9-20); Calcium 8.6 mg/dL (8.4-10.2); Carbon Dioxide 24 mmol/L (22-30); Chloride 105 mmol/L (98-107); Globulin 2.6 g/dL; Glucose 126 mg/dL (74-99); Non-African American GFR(CKD) 89 (>60 ml/min/1.73 sqM); Potassium 4.1 mmol/L (3.5-5.1); Sodium 139 mmol/L (137-145); Total Bilirubin 0.5 mg/dL (0.2-1.3); Total Protein 5.9 g/dL (6.3-8.2)
[2021-01-31 10:42] LABS: HGB 12.7 gm/dL (13.0-17.5)
[2021-01-31] MEDS: HYDROcodone/APAP 5-325MG 1 EACH TAB PO PRN (10:52)
--- NOTE | 2021-01-31 10:54 | XR ---
EXAMINATION TYPE: XR chest 2V DATE OF EXAM: 01/31/2021 10:31 AM COMPARISON:None CLINICAL INDICATION:Male, 30 years old with history of Hypoxia; TECHNIQUE: Frontal and lateral views of the chest. FINDINGS: Lungs/Pleura: There are hazy opacities most pronounced in the right. No evidence of pneumothorax or p leural effusion. [place] findings present. Pulmonary vascularity: Unremarkable. Heart/mediastinum: Cardiomediastinal silhouette is unremarkable. Musculoskeletal: No acute osseous pathology. IMPRESSION: Predominantly right-sided airspace disease.
--- NOTE | 2021-01-31 14:43 | P.PN ---
Subjective Progress Note Date: 01/31/21 CHIEF COMPLAINT: Acute gangrenous cholecystitis with sepsis HISTORY OF PRESENT ILLNESS: The patient is a 30-year-old male s/p robotic cholecystectomy for acute gangrenous cholecystitis with sepsis. He is POD 2. This morning, his nurse reported moderate hypoxia, O2 sat of 83%. Additional studies were obtained. This afternoon, "I feel great!" He is sitting up at bedside without complaints of dysnea. ROS: No reports of nausea and vomiting. No fevers or chills. No new chest pain. No productive sputum PHYSICAL EXAM: VITAL SIGNS: Reviewed CONSTITUTIONAL: Well developed and in no acute distress. EYES: Conjuctivae without sclera icterus. Extraocular movements grossly intact. HEAD, EARS, NOSE, THROAT: Moist buccal mucosa. Head is atraumatic, normocephalic. Hears conversational speech. No nasal drainage. RESPIRATORY: Non-labored respirations and equal bilateral excursions. CARDIOVASCULAR: 2+ radial pulses. ABDOMEN: Dressing intact. MUSCULOSKELETAL: No gross deformity of the lower extremities noted. No clubbing. No cyanosis. SKIN: Good skin turgor. Well perfused. NEUROLOGIC: Cranial nerves II through XII grossly intact. No focal or lateralizing signs. PSYCH: Appropriate affect. Alert and oriented to person, place and time. CLINICAL LABS: Reviewed. WBC elevated over 13,000 improved to 10,700. LFTs improving. STUDIES: Chest xray reviewed with right lower lobe poor opacity. RADIOLOGY: Chest xray with poor aeration of the right lung. No increased pulmonary vasculature. ASSESSMENT: 1. Acute gangrenous cholecystitis with sepsis. 2. Common bile duct obstruction, resolve 3. Hypoxia. PLAN: 1. He feels better. Pulmonary consultation earlier obtained for persistent hypoxia. Patient is COVID-19 negative on admission. 2. Disposition tomorrow. 3. Continue IV antibiotics, incentive spirometry. Objective - Vital Signs Vital signs: Vital Signs Temp 98.1 F 01/31/21 07:00 Pulse 95 01/31/21 07:00 Resp 16 01/31/21 07:00 BP 139/90 01/31/21 07:00 Pulse Ox 91 L 01/31/21 10:00 Intake & Output 01/30/21 01/31/21 01/31/21 18:59 06:59 18:59 Intake Total 180 118 Balance 180 118 Intake: Oral 180 118 Other: # Voids 2 1 - Labs CBC & Chem 7: 01/31/21 10:02 01/31/21 10:12 Labs: Abnormal Lab Results - Last 24 Hours (Table) 01/31/21 01/31/21 Range/Units 10:02 10:12 WBC 10.7 H (3.8-10.6) k/uL RBC 4.06 L (4.30-5.90) m/uL Hgb 12.7 L D (13.0-17.5) gm/dL Hct 38.2 L (39.0-53.0) % Neutrophils # 8.0 H (1.3-7.7) k/uL Glucose 126 H (74-99) mg/dL AST 60 H (17-59) U/L ALT 78 H (4-49) U/L Total Protein 5.9 L (6.3-8.2) g/dL Albumin 3.3 L (3.5-5.0) g/dL Microbiology - Last 24 Hours (Table) 01/28/21 00:50 Blood Culture - Preliminary Blood No Growth after 72 hours 01/28/21 00:35 Blood Culture - Preliminary Blood No Growth after 72 hours Assessment and Plan (1) Common bile duct obstruction Current Visit: Yes Status: Acute Code(s): K83.1 - OBSTRUCTION OF BILE DUCT SNOMED Code(s): 273173033 (2) Hypoxia Current Visit: Yes Status: Acute Code(s): R09.02 - HYPOXEMIA SNOMED Code(s): 003781162 (3) Gangrene of gallbladder in cholecystitis Current Visit: Yes Status: Acute Code(s): K82.A1 - GANGRENE OF GALLBLADDER IN CHOLECYSTITIS SNOMED Code(s): 230916791 (4) Hyperbilirubinemia Current Visit: Yes Status: Acute Code(s): E80.6 - OTHER DISORDERS OF BILIRUBIN METABOLISM SNOMED Code(s): 79300955 (5) Leukocytosis Current Visit: Yes Status: Acute Code(s): D72.829 - ELEVATED WHITE BLOOD CELL COUNT, UNSPECIFIED SNOMED Code(s): 393423795 (6) Sepsis Current Visit: Yes Status: Acute Code(s): A41.9 - SEPSIS, UNSPECIFIED ORGANISM SNOMED Code(s): 75362724
--- NOTE | 2021-01-31 17:22 | P.CNPUL ---
History of Present Illness Consult date: 01/31/21 Requesting physician: Jenelle Vega Reason for consult: dyspnea, cough Chief complaint: Shortness of breath, cough History of present illness: This is a 30-year-old white male patient who presented to the emergency department on 01/27/2021 with complaints of abdominal pain for the past one week in the right upper quadrant which has significantly worsened on the day of presentation. CT of the abdomen and pelvis with contrast was completed showing multiple gallstones with some mild pericholecystic fluid or gallbladder wall thickening of the gallbladder fundus suspicious for cholecystitis. Patient had no fever, but was having episodes of vomiting and nausea. His lab work showed leukocytosis and mildly elevated LFTs. Gen. surgery was consulted, patient was diagnosed with acute cholecystitis due to the cystic duct obstruction from gallstones. Patient underwent robotic-assisted da Wagner laparoscopic cholecystectomy and was found to have acute gangrenous cholecystitis with hydro ps due to multiple gallstones with impaction and cystic duct on 01/29/2021. Today on 01/31/2021 patient felt more short of breath, and started coughing initially which is dry cough, his chest x-ray shows hazy opacities mostly pronounced in the right, possibly related to pneumonia. Patient is already on Zosyn for sepsis related to cholecystitis. No fever, he remains on room air, pulse ox is 94%. This afternoon he states he started to bring up some phlegm. Today his white count is 10.7, which is an improvement value from previous days, his hemoglobin is 12.7, his electrolytes and renal profile are within normal limits, his liver enzymes are improved on today's labs, with AST of 60, ALT of 78, alk phos of 64. He was tested for COVID-19 and was negative. Blood cultures have been sent on 01/28/2021 showing no growth. Patient denies any pleuritic chest pain, his been working on incentive spirometer, he is achieving 1.7 L. He reports a remote history of smoking, and remote history of marijuana use but nothing recently. No complaints of hemoptysis, his mentation is appropriate, he is awake and alert, he is oriented 3. Lung sounds reveal diminished breath sounds over right lower lobe, and coarse breath sounds, no wheezing. Review of Systems All systems: negative Constitutional: Denies chills, Denies fever Eyes: denies blurred vision, denies pain Ears, nose, mouth and throat: Denies headache, Denies sore throat Cardiovascular: Denies chest pain, Denies shortness of breath Respiratory: Reports cough with sputum, Reports dyspnea, Denies cough Gastrointestinal: Denies abdominal pain, Denies diarrhea, Denies nausea, Denies vomiting Musculoskeletal: Denies myalgias Integumentary: Denies pruritus, Denies rash Neurological: Denies numbness, Denies weakness Psychiatric: Denies anxiety, Denies depression Endocrine: Denies fatigue, Denies weight change Past Medical History Past Medical History: No Reported History History of Any Multi-Drug Resistant Organisms: None Reported Past Surgical History: No Surgical Hx Reported Past Anesthesia/Blood Transfusion Reactions: No Reported Reaction Past Psychological History: No Psychological Hx Reported Smoking Status: Never smoker Past Alcohol Use History: Daily Past Drug Use History: Marijuana Medications and Allergies Home Medications Medication Instructions Recorded Confirmed Type Omeprazole 40 mg PO BID 01/27/21 01/29/21 History Allergies Allergy/AdvReac Type Severity Reaction Status Date / Time No Known Allergies Allergy Verified 01/29/21 09:17 Physical Exam Vitals: Vital Signs Temp Pulse Resp BP Pulse Ox 01/31/21 15:00 98.6 F 101 H 16 149/87 94 L 01/31/21 10:00 91 L 01/31/21 07:00 98.1 F 95 16 139/90 92 L 01/31/21 00:51 98.7 F 94 17 143/89 89 L 01/30/21 19:06 98.0 F 96 17 139/83 93 L Intake and Output 01/31/21 01/31/21 01/31/21 06:59 14:59 22:59 Intake Total 236 Balance 236 Intake: Oral 236 Other: # Voids 1 # Bowel Movements 1 GENERAL EXAM: Alert, very pleasant, 30-year-old white male, on room air with pulse ox of 94% comfortable in no apparent distress. HEAD: Normocephalic/atraumatic. EYES: Normal reaction of pupils, equal size. Conjunctiva pink, sclera white. NOSE: Clear with pink turbinates. THROAT: No erythema or exudates. NECK: No masses, no JVD, no thyroid enlargement, no adenopathy. CHEST: No chest wall deformity. Symmetrical expansion. LUNGS: Equal air entry with diminished breath sounds in the right lower lobe CVS: Regular rate and rhythm, normal S1 and S2, no gallops, no murmurs, no rubs ABDOMEN: Soft, nontender. No hepatosplenomegaly, normal bowel sounds, no guarding or rigidity. Abdominal incisions are inspected, EXTREMITIES: No clubbing, no edema, no cyanosis, 2+ pulses and upper and lower extremities. MUSCULOSKELETAL: Muscle strength and tone normal. SPINE: No scoliosis or deformity SKIN: No rashes CENTRAL NERVOUS SYSTEM: Alert and oriented -3. No focal deficits, tone is normal in all 4 extremities. PSYCHIATRIC: Alert and oriented -3. Appropriate affect. Intact judgment and insight. Results - Laboratory Findings CBC and BMP: 01/31/21 10:02 01/31/21 10:12 Abnormal lab findings: Abnormal Labs 01/27/21 01/27/21 01/27/21 22:44 22:44 22:44 WBC 12.0 H RBC Hgb Hct Neutrophils # 8.4 H Monocytes # Eosinophils # BUN/Creatinine Ratio Glucose 116 H Total Bilirubin AST 62 H ALT 86 H Total Protein Albumin Urine Protein Trace H 01/28/21 01/28/21 01/29/21 06:38 06:38 06:10 WBC 15.2 H 12.88 H RBC Hgb Hct Neutrophils # 12.4 H 8.74 H Monocytes # 1.38 H Eosinophils # BUN/Creatinine Ratio Glucose 118 H Total Bilirubin AST ALT 77 H Total Protein Albumin Urine Protein 01/29/21 01/30/21 01/30/21 06:10 04:33 04:33 WBC 13.86 H RBC 4.08 L Hgb 12.7 L Hct 37.7 L Neutrophils # 10.95 H Monocytes # 1.10 H Eosinophils # 0.03 L BUN/Creatinine Ratio 7.58 L 10.36 L Glucose Total Bilirubin 1.40 H AST 39 H 78 H ALT 65 H 100 H Total Protein 5.9 L Albumin Urine Protein 01/31/21 01/31/21 10:02 10:12 WBC 10.7 H RBC 4.06 L Hgb 12.7 L D Hct 38.2 L Neutrophils # 8.0 H Monocytes # Eosinophils # BUN/Creatinine Ratio Glucose 126 H Total Bilirubin AST 60 H ALT 78 H Total Protein 5.9 L Albumin 3.3 L Urine Protein - Diagnostic Findings Chest x-ray: report reviewed, image reviewed Additional studies: Results the CT of the abdomen and pelvis reviewed Assessment and Plan Plan: Assessment: #1. Acute hypoxic respiratory failure related to a possibility of right lower lobe pneumonia. COVID-19 was negative. Patient has already been on Zosyn for gallbladder cholecystitis #2. Acute gangrenous cholecystitis with cystic duct obstruction due to gallstones, status post robotic-assisted upper scopic cholecystectomy on 01/29/2021 #3. Mildly elevated LFTs, improving #4. Leukocytosis, related to gallbladder cholecystitis and sepsis, improving #5. Hypertension #6. Remote and very brief history of smoking Plan: Continue Zosyn We'll send appropriate Level We'll send a sputum specimen Continue with nebulized bronchodilators Patient denies any acute distress Does have a mild cough with some phlegm production Seems to be fairly comfortable, his leukocytosis is improving, vital signs are stable We'll continue to follow Encourage deep breathing and coughing and incentive spirometer use I performed a history & physical examination of the patient and discussed their management with my nurse practitioner, Izzy Bautista. I reviewed the nurse practitioner's note and agree with the documented findings and plan of care. Lung sounds are positive for dim breath sounds throughout the lung neumann. The findings and the impression was discussed with the patient. I attest to the documentation by the nurse practitioner. Time with Patient: Greater than 30
[2021-02-01] MEDS: PIPERACILLIN-TAZOBACTAM 3.375 GM in SODIUM CHLORIDE 0.9% 100 ML IVPB SCH ×2 (01:25→07:36)
[2021-02-01] MEDS: KETOROLAC 30 MG/ML 1 ML VIAL IVP SCH ×2 (05:13→11:29)
[2021-02-01] MEDS: ENOXAPARIN 30 MG/0.3 ML SYRINGE SQ SCH (05:13)
[2021-02-01] MEDS: ACETAMINOPHEN TAB 500 MG TAB PO SCH ×2 (05:13→11:29)
[2021-02-01] MEDS: HYDROmorphone 1 MG/ML 1 ML SYRINGE IVP PRN (05:52)
[2021-02-01] MEDS: PANTOPRAZOLE 40 MG TABLET PO SCH (07:36)
[2021-02-01] MEDS: metroNIDAZOLE-NS PMX 500 MG in SALINE 1 100ML.BAG IVPB SCH (07:36)
[2021-02-01 07:48] VITALS: BP 121/73; PULSE 88; RESP 20; TEMP 98.1
[2021-02-01] MEDS: ALBUTEROL NEBULIZED 2.5 MG/3 ML INHALATION SCH ×2 (08:07→11:06)
[2021-02-01 09:19] LABS: Basophils # (A) 0.05 X 10*3/uL (0.00-0.10); Basophils % (A) 0.5 %; Eosinophils # (A) 0.26 X 10*3/uL (0.04-0.35); Eosinophils % (A) 2.5 %; HCT 39.8 % (39.6-50.0); Lymphocytes % (A) 18.5 %; MCH 30.3 pg (27.0-32.0); MCHC 32.7 g/dL (32.0-37.0); MCV 92.8 fL (80.0-97.0); Mean Platelet Volume 9.5 fL (9.5-12.2); Monocytes # (A) 0.89 X 10*3/uL (0.20-1.00); Monocytes % (A) 8.7 %; Neutrophils # (A) 7.11 X 10*3/uL (1.80-7.70); Neutrophils % (A) 69.3 %; Platelet Count 364 X 10*3/uL (140-440); RBC 4.29 X 10*6/uL (4.40-5.60); RDW 12.2 % (11.5-14.5); WBC 10.26 X 10*3/uL (4.50-10.00)
[2021-02-01 09:28] LABS: African American GFR (CKD) 102.4 (60.0-200.0); Albumin/Globulin Ratio 1.74 (1.60-3.17); Anion Gap 13.1 mmol/L (10.00-18.00); BUN/Creat Ratio 11.18 Ratio (12.00-20.00); Blood Urea Nitrogen 12.3 mg/dL (9.0-27.0); Calcium 9.3 mg/dL (8.7-10.3); Carbon Dioxide 22.9 mmol/L (20.0-27.5); Globulin 2.3 g/dL (1.6-3.3); Non-African American GFR(CKD) 88.4 (60.0-200.0); Potassium 4.1 mmol/L (3.5-5.5); Total Bilirubin 0.6 mg/dL (0.30-1.20); Total Protein 6.3 g/dL (6.2-8.2)
--- NOTE | 2021-02-01 11:42 | P.DS ---
<Mireya Cruz - Last Filed: 02/01/21 11:48> Providers Expected date of discharge: 02/01/21 Hospital Course: Discharge diagnosis 1. Acute gangrenous cholecystitis with cystic duct obstruction due to gallstones status post robotic-assisted da Wagner xi [place] cholecystectomy 2. Uncontrolled hypertensive heart disease 3. Obesity due to excess calories, BMI 33.0 4. Gastroesophageal reflux disease 5. Hyperbilirubinemia due to common bile duct obstruction 6. Common bile duct obstruction, resolved 7. Sepsis due to acute gangrenous cholecystitis 8. Hypoxia This is a 30-year-old male who had presented to the hospital with complaints of right upper quadrant abdominal pain. He had been having intermittent pain since April. However prior to coming into the hospital the pain became more severe so he presented to the emergency room for further evaluation. He had a computed tomography scan of the abdomen and pelvis showing multiple gallstones with some mild pericholecystic fluid or gallbladder wall thickening at the gallbladder fundus suspicious for cholecystitis. No dilated ducts. Normal appendix. On 01/29/2021 he underwent a robotic-assisted da Wagner Xi lapraroscopic cholecystectomy, multiport with FIREFLY. Postoperative findings were acute gangrenous cholecystitis with cystic duct obstruction due to gallstones. Yesterday the patient reportedly had his oxygen saturation dropped into the 80s. He had a chest x-ray that showed predominantly right-sided airspace disease. Pulmonary consultation was placed. He has been continuing use with his incentive spirometer. They had ordered a sputum collection however patient is not having a productive cough. He has been up and ambulating. He has had 2 bowel movements since surgery. He denies any nausea or vomiting. He does have some surgical discomfort with a abdominal binder placed. He has been afebrile. Oxygen a duration 94% on room air. The impression and plan of care has been dictated as directed. Dr. Vega I performed a history and examination of this patient, discussed the same with the dictator. I agree with the dictator's note ,documented as a scribe. Any additional findings or plans will be noted. Procedures: Robotic-assisted da Wagner Xi laparoscopic cholecystectomy, multiport with FIREFLY Patient Condition at Discharge: Stable Plan - Discharge Summary Discharge Rx Participant: No New Discharge Prescriptions: New Simethicone [Gas-X] 125 mg PO AC-TID PRN #20 capsule PRN Reason: Pain Ibuprofen [Motrin] 600 mg PO Q8HR PRN #30 tab PRN Reason: Pain Acetaminophen Tab [Tylenol Tab] 1,000 mg PO Q6HR PRN #30 tablet PRN Reason: Pain Amoxicillin/Potassium Clav [Augmentin 875-125 Tablet] 1 tab PO Q12HR 7 Days #14 tab Omeprazole [PriLOSEC] 40 mg PO DAILY #14 cap Discontinued Omeprazole 40 mg PO BID Discharge Medication List Acetaminophen Tab [Tylenol Tab] 1,000 mg PO Q6HR PRN #30 tablet 02/01/21 [Rx] Amoxicillin/Potassium Clav [Augmentin 875-125 Tablet] 1 tab PO Q12HR 7 Days #14 tab 02/01/21 [Rx] Ibuprofen [Motrin] 600 mg PO Q8HR PRN #30 tab 02/01/21 [Rx] Omeprazole [PriLOSEC] 40 mg PO DAILY #14 cap 02/01/21 [Rx] Simethicone [Gas-X] 125 mg PO AC-TID PRN #20 capsule 02/01/21 [Rx] Follow up Appointment(s)/Referral(s): Joseph Morales MD [Primary Care Provider] - 1-2 days Jenelle Vega MD [STAFF PHYSICIAN] - 02/09/21 (Telehealth available) Nima Luke DO [Doctor of Osteopathic Medicine] - 1 Week Patient Instructions/Handouts: Cholecystitis (ED), Low Fat Diet (ED) Activity/Diet/Wound Care/Special Instructions: No lifting over 10 pounds in 2 weeks until Feb 19, 2021. May shower. No bath tub soaks for two weeks until Feb 19, 2021. Diet as tolerated. Use Tylenol, simethicone and ibuprofen or Aleve scheduled for the next 24-48 hours for best pain relief. Use ice along incisions for today to prevent swelling. Discharge Disposition: HOME SELF-CARE <Jenelle Vega - Last Filed: 02/01/21 18:34> Providers Date of admission: 01/29/21 13:47 Attending physician: Jenelle Vega Consults: 01/29/21 06:14 Consult Physician Routine Consulting Provider: [facility] Consult Reason/Comments: [facility] Do you want consulting provider notified?: Yes 01/31/21 09:26 Consult Physician Routine Consulting Provider: Nima Luke Consult Reason/Comments: Hypoxia Do you want consulting provider notified?: Yes Primary care physician: Joseph Morales MD - Discharge Diagnosis(es) (1) Common bile duct obstruction Status: Acute (2) Hypoxia Status: Acute (3) Gangrene of gallbladder in cholecystitis Status: Acute (4) Hyperbilirubinemia Status: Acute (5) Leukocytosis Status: Acute (6) Sepsis Status: Acute
== END 2021-02-01 13:51 | disposition home or self-care (01) | DRG 853 ==
LOC: EC 22:03 → 6NMEDSUR 01-28 02:28 → OBSVTOIN 01-29 13:47
PROVIDERS: ADMIT Surgery Plastic and Reconstructive Surgery; ATTEND Surgery Plastic and Reconstructive Surgery
PROC: 8E0W4CZ Robotic Assisted Procedure of Trunk Region, Percutaneous Endoscopic Approach (ICD-10-PCS; principal; 2021-01-29 10:00)
PROC: BF53200 Other Imaging of Gallbladder and Bile Ducts using Fluorescing Agent, Indocyanine Green Dye, Intraoperative (ICD-10-PCS; principal; 2021-01-29 10:00)
PROC: 0FT44ZZ Resection of Gallbladder, Percutaneous Endoscopic Approach (ICD-10-PCS; principal; 2021-01-29 10:00)
DX: A41.9 Sepsis, unspecified organism (principal); J96.01 Acute respiratory failure with hypoxia; K80.63 Calculus of gallbladder and bile duct with acute cholecystitis with obstruction; K82.1 Hydrops of gallbladder; Z20.822 Contact with and (suspected) exposure to COVID-19; K82.A1 Gangrene of gallbladder in cholecystitis; I11.9 Hypertensive heart disease without heart failure; K21.9 Gastro-esophageal reflux disease without esophagitis; E66.09 Other obesity due to excess calories; Z68.33 Body mass index [BMI] 33.0-33.9, adult; Z87.891 Personal history of nicotine dependence
CPT/HCPCS: 36415; 71046; 74177; 80053; 81003; 82150; 83605; 83690; 83880; 84145; 85025; 87040; 87635; 88304; 94640; 96361; 96365; 96375; 96376; 99285